=== PATIENT | female | born 1960 | race Caucasian/White ===

== ENCOUNTER 2020-10-02 05:40 | Observation (INO) ==
[2020-10-02] MEDS ORDERED: diazePAM 10 MG/2 ML SYRINGE IM STA (05:51)
[2020-10-02] MEDS ORDERED: Ketorolac 30 MG/ML VIAL IM ONE (05:51)
[2020-10-02] MEDS ORDERED: *HR* HYDROmorphone (PF) 1 MG/ML SYRINGE IVP ONE (08:14)
[2020-10-02] MEDS ORDERED: Naloxone 0.4 MG/ML INJ IVP PRN (10:54)
[2020-10-02] MEDS ORDERED: Mag Hydrox/Al Hydrox/Simeth 30 ML UDC PO PRN (10:54)
[2020-10-02] MEDS ORDERED: MOM Conc 10 ML UD.LIQ PO PRN (10:54)
[2020-10-02] MEDS ORDERED: Melatonin 3 MG TABLET PO PRN (10:54)
[2020-10-02] MEDS ORDERED: Ondansetron ODT 4 MG TAB.RAPDIS SL PRN (10:54)
[2020-10-02] MEDS ORDERED: *HR* HYDROmorphone (PF) 1 MG/ML SYRINGE IVP PRN (10:56)
[2020-10-02] MEDS ORDERED: *HR* OxyCODONE Immed Rel 5 MG TABLET PO PRN (10:56)
[2020-10-02] MEDS ORDERED: Baclofen 10 MG TABLET PO PRN (11:00)
[2020-10-02] MEDS: *HR* OxyCODONE Immed Rel 5 MG TABLET PO PRN ×2 (11:39→17:16)
[2020-10-02 16:08] VITALS: BP 120/75; PULSE 85; TEMP 98.4; O2SAT 96
[2020-10-03] MEDS ORDERED: *HR* Enoxaparin 40 MG/0.4 ML SYRINGE SQ SCH (06:00)
[2020-10-03] MEDS ORDERED: lisinopriL 10 MG TABLET PO SCH (09:00)
[2020-10-03] MEDS ORDERED: hydroCHLOROthiazide 25 MG TABLET PO SCH (09:00)
== END 2020-10-02 18:08 | disposition short-term general hospital (02) ==
LOC: 3NENU 05:40 → EMEROOARM 05:40 → SUATTDRO 10:31 → 3NENU 11:45
PROVIDERS: ADMIT General Practice; ATTEND Registered Nurse